=== PATIENT | male | born 1985 | race Two or more races ===

== ENCOUNTER → 2021-02-28 13:31 | Outpatient (BNVA) | payer OTHER, SELFPAY | PROVIDERS: PCP Hospitalist; Visit Provider Nurse Practitioner ==

== ENCOUNTER → 2022-09-23 14:36 | Outpatient (BNVA) | payer OTHER, SELFPAY | PROVIDERS: PCP Hospitalist; Visit Provider Nurse Practitioner | DX: K21.9 Gastro-esophageal reflux disease without esophagitis (principal) | CPT/HCPCS: 99212 ==